=== PATIENT | male | born 1960 | race Caucasian/White ===

== ENCOUNTER 2018-06-02 16:59 | Emergency (ER) | payer OTHER ==
--- NOTE | 2018-06-02 17:35 | RAD REPORT ---
EXAM DESCRIPTION: RAD - Elbow Right 3 View - 06/02/2018 5:22 pm CLINICAL HISTORY: right elbow pain COMPARISON: No comparisons FINDINGS: No fracture or dislocation is identified.
[2018-06-02] MEDS ORDERED: KETOROLAC 30 MG/ML INJ ONE (18:37)
--- NOTE | 2018-06-02 18:41 | EDPHYS ---
Physician Documentation [facility] [place] Name: Allen Pimentel Age: 58 yrs Sex: Male : 1960 Arrival Date: 06/02/2018 Time: 17:01 Bed 12 Private MD: Jerzy Mccord T ED Physician Michael Walden HPI: 06/02 17:10 This 58 yrs old Male presents to ER via Ambulatory with complaints of Elbow jmm Injury. 17:10 The patient or guardian complains of injury, pain, that is acute. Onset: The jmm symptoms/episode began/occurred acutely. This is a 58 year old male with a history of DM, HTN, HLP that presents to the ED with complaints of right elbow pain after lifting a bed. Patient states he felt a pop. Denies other injury. . Historical: - Allergies: 17:05 No Known Allergies; tw2 - Home Meds: 17:05 metformin Oral [Active]; aspirin 81 mg Oral chew 1 tab once daily [Active]; tw2 - PMHx: 17:05 Diabetes - NIDDM; Hypertension; Hyperlipidemia; tw2 - Immunization history:: Adult Immunizations. - Social history:: Smoking status: . - Ebola Screening: : Patient negative for fever greater than or equal to 101.5 degrees Fahrenheit, and additional compatible Ebola Virus Disease symptoms. ROS: 17:10 Constitutional: Negative for fever, chills, and weight loss, Cardiovascular: Negative jmm for chest pain, palpitations, and edema, Respiratory: Negative for shortness of breath, cough, wheezing, and pleuritic chest pain, Abdomen/GI: Negative for abdominal pain, nausea, vomiting, diarrhea, and constipation, Back: Negative for injury and pain. 17:10 Neuro: Negative for headache, weakness, numbness, tingling, and seizure. 17:10 Skin: Positive for injury, pain. 17:10 All other systems are negative. Exam: 17:10 Constitutional: This is a well developed, well nourished patient who is awake, alert, jmm and in no acute distress. Head/Face: atraumatic. Eyes: EOMI, no conjunctival erythema appreciated ENT: Moist Mucus Membranes Neck: Trachea midline, Supple Chest/axilla: Normal chest wall appearance and motion. Cardiovascular: Regular rate and rhythm. No edema appreciated Respiratory: Normal respirations, no respiratory distress appreciated Abdomen/GI: Non distended, soft Back: Normal ROM Skin: General appearance color normal 17:10 Musculoskeletal/extremity: pain is elicited on flexion of the right elbow at the antecubital region, no obvious muscle deformity is appreciated, compartments are soft, NVI. 17:10 Skin: Appearance: Color: normal in color, Temperature: 17:10 Neuro: Orientation: is normal, Mentation: is normal, Memory: is normal. 17:10 Psych: Behavior/mood is pleasant, cooperative. Vital Signs: 17:03 BP 153 / 95; Pulse 92; Resp 17; Temp 97.9(TE); Pulse Ox 97% on R/A; Weight 106.59 kg tw2 (R); Height 6 ft. 1 in. (185.42 cm); Pain 7/10; 17:03 Body Mass Index 31.00 (106.59 kg, 185.42 cm) tw2 MDM: 17:10 Patient medically screened. silverio 18:37 Data reviewed: vital signs, nurses notes. Counseling: I had a detailed discussion with silverio the patient and/or guardian regarding: the historical points, exam findings, and any diagnostic results supporting the discharge/admit diagnosis, radiology results, the need for outpatient follow up, to return to the emergency department if symptoms worsen or persist or if there are any questions or concerns that arise at home. 06/02 18:45 Order name: Urine Dipstick--Ancillary (enter results) bd 06/02 17:10 Order name: Elbow Right 3 View XRAY; Complete Time: 17:48 [facility] 06/02 18:13 Order name: Sling; Complete Time: 18:31 [facility] Administered Medications: 18:31 Drug: Ketorolac 30 mg Route: IM; Site: right deltoid; aj1 18:56 Follow up: Response: No adverse reaction aj1 Disposition: 06/02/18 18:38 Discharged to Home. Impression: Other sprain of right elbow. - Condition is Stable. - Discharge Instructions: Muscle Strain. - Prescriptions for Ultracet 37.5- 325 mg Oral Tablet - take 1 tablet by ORAL route every 6 hours - for up to 5 days; do not exceed 8 tablets per day.; 20 tablet. - Medication Reconciliation Form, Thank You Letter, Antibiotic Education, Prescription Opioid Use form. - Follow up: Toribio Ragland MD; When: 2 - 3 days; Reason: Recheck today's complaints, Continuance of care, Re-evaluation by your physician. Signatures: Dispatcher [employer] Radha Finley, RN RN aj1 Adeel Sunshine PA PA jmm Wise, Tara, RN RN tw2 Corrections: (The following items were deleted from the chart) 19:02 18:38 06/02/2018 18:38 Discharged to Home. Impression: Other sprain of right elbow. aj1 Condition is Stable. Forms are Medication Reconciliation Form, Thank You Letter, Antibiotic Education, Prescription Opioid Use. Follow up: Toribio Ragland; When: 2 - 3 days; Reason: Recheck today's complaints, Continuance of care, Re-evaluation by your physician. silverio
--- NOTE | 2018-06-02 18:41 | ER ---
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 Transition of care: patient was not received from another setting of care. Onset of symptoms was June 02, 2018. Risk Assessment: Do you want to hurt yourself or someone else? Patient reports no desire to harm self or others. Initial Sepsis Screen: Does the patient meet any 2 criteria? No. Patient's initial sepsis screen is negative. Does the patient have a suspected source of infection? No. Patient's initial sepsis screen is negative. Care prior to arrival: None. 17:02 Method Of Arrival: Ambulatory tw2 17:02 Acuity: [place] 4 tw2 Triage Assessment: 17:03 General: Appears uncomfortable, Behavior is calm, cooperative, appropriate for age. tw2 Pain: Complains of pain in right arm. Musculoskeletal: Circulation, motion, and sensation intact. Reports pain in right arm. Injury Description: "it feels like the muscle tore". Historical: - Allergies: 17:05 No Known Allergies; tw2 - Home Meds: 17:05 metformin Oral [Active]; aspirin 81 mg Oral chew 1 tab once daily [Active]; tw2 - PMHx: 17:05 Diabetes - NIDDM; Hypertension; Hyperlipidemia; tw2 - Immunization history:: Adult Immunizations. - Social history:: Smoking status: . - Ebola Screening: : Patient negative for fever greater than or equal to 101.5 degrees Fahrenheit, and additional compatible Ebola Virus Disease symptoms. Screenin:34 Abuse screen: Denies threats or abuse. Denies injuries from another. Nutritional aj1 screening: No deficits noted. Tuberculosis screening: No symptoms or risk factors identified. 18:34 Fall Risk None identified. aj1 Assessment: 18:34 General: Appears in no apparent distress. uncomfortable, Behavior is calm, cooperative, aj1 appropriate for age. Pain: Complains of pain in right antecubital area. Neuro: Level of Consciousness is awake, alert, obeys commands, Oriented to person, place, time, situation. Cardiovascular: Patient's skin is warm and dry. Respiratory: Airway is patent Respiratory effort is even, unlabored, Respiratory pattern is regular, symmetrical. GI: No signs and/or symptoms were reported involving the gastrointestinal system. : No signs and/or symptoms were reported regarding the genitourinary system. EENT: No signs and/or symptoms were reported regarding the EENT system. Derm: No signs and/or symptoms reported regarding the dermatologic system. Skin is pink, warm \\T\\ dry. black. Musculoskeletal: Range of motion: intact in all extremities. Vital Signs: 17:03 BP 153 / 95; Pulse 92; Resp 17; Temp 97.9(TE); Pulse Ox 97% on R/A; Weight 106.59 kg tw2 (R); Height 6 ft. 1 in. (185.42 cm); Pain 7/10; 17:03 Body Mass Index 31.00 (106.59 kg, 185.42 cm) tw2 ED Course: 17:01 Patient arrived in ED. mr 17:01 Jerzy Mccord MD is Private Physician. mr 17:03 Triage completed. tw2 17:04 Arm band placed on. tw2 17:05 Adeel Sunshine PA is PHCP. jmm 17:06 Michael Walden MD is Attending Physician. jmm 17:19 X-ray completed. Portable x-ray completed in exam room. Patient tolerated procedure ml well. 17:21 Elbow Right 3 View XRAY In Process Unspecified. EDMS 17:25 Radha Lombardo, RN is Primary Nurse. aj1 18:34 Patient has correct armband on for positive identification. aj1 18:34 No provider procedures requiring assistance completed. Patient did not have IV access aj1 during this emergency room visit. 18:38 Toribio Ragland MD is Referral Physician. jmm 19:01 Sling applied to right arm. aj1 Administered Medications: 18:31 Drug: Ketorolac 30 mg Route: IM; Site: right deltoid; aj1 18:56 Follow up: Response: No adverse reaction aj1 Outcome: 18:38 Discharge ordered by . silverio 19:01 Discharged to home ambulatory. aj1 19:01 Condition: good 19:01 Discharge instructions given to patient, Instructed on discharge instructions, follow up and referral plans. medication usage, Demonstrated understanding of instructions, follow-up care, medications, Prescriptions given X 1. 19:02 Patient left the ED. aj1 Signatures: Dispatcher [employer] EDRadha Fitzpatrick, RN RN aj1 Adeel Sunshine PA PA jmm Rivera, Mary mr Eddy, Yary Penaloza, RN RN tw2
[2018-06-02 19:04] LABS: Urine Blood NEGATIVE (NEG); Urine Glucose NEGATIVE (NEG); Urine Protein NEGATIVE (NEG); Urine pH 6.5 (5.0-7.0)
== END 2018-06-02 19:02 | disposition home or self-care (01) ==
LOC: ER 16:59
DX: S53.491A Other sprain of right elbow, initial encounter (principal); X50.9XXA Other and unspecified overexertion or strenuous movements or postures, initial encounter; Y93.89 Activity, other specified; Y92.9 Unspecified place or not applicable; Z79.82 Long term (current) use of aspirin; I10 Essential (primary) hypertension; E11.9 Type 2 diabetes mellitus without complications
CPT/HCPCS: 81003; 96372; 99284